=== PATIENT | male | born 1990 | race Caucasian/White ===

== ENCOUNTER 2018-08-30 18:10 | Emergency (ER) | payer OTHER ==
[~2018-08-30] VITALS: Ht 182.9 cm; Wt 127.0 kg
[2018-08-30 18:25] VITALS: BP_SYST 163
[2018-08-30 19:08] VITALS: BP_SYST 156
== END 2018-08-30 19:08 ==
LOC: SED 18:10
DX: Z13.89 Encounter for screening for other disorder (principal)
CPT/HCPCS: 99283